=== PATIENT | male | born 1965 ===

== ENCOUNTER 2018-03-15 21:46 | Emergency (ER) | payer MEDICAID, OTHER ==
[2018-03-15 21:47] VITALS: BMI 38.0
[2018-03-15 21:55] VITALS: BP 129/79; PULSE 81; RESP 20; TEMP 98.6; O2SAT 98
--- NOTE | 2018-03-15 22:35 | C.PDOC ---
History Of Present Illness 52 year old male presents to the ED for evaluation of itchy big bites to his bilateral arms, legs and the back of his head. Patient reports he went camping this past Thursday recently came back. Patient also states that after he started scratching the bites in his legs, both legs started swelling up. Patient denies fever, chills, nausea, vomit, diarrhea. Time Seen by Provider: 03/15/18 22:00 Chief Complaint (Nursing): Abnormal Skin Integrity History Per: Patient History/Exam Limitations: no limitations Onset/Duration Of Symptoms: Days Location Of Injury: Right: Arm, Leg, Left: Arm, Leg, Posterior: Head Quality Of Symptoms: Itching Recent travel outside of the [place]: No Additional History Per: Patient Past Medical History Reviewed: Historical Data, Nursing Documentation, Vital Signs Vital Signs: Last Vital Signs Temp 98.6 F 03/15/18 21:50 Pulse 81 03/15/18 21:50 Resp 20 03/15/18 21:50 BP 129/79 03/15/18 21:50 Pulse Ox 98 03/15/18 22:50 - Medical History PMH: Asthma, Back Problems Denies: Chronic Kidney Disease Surgical History: No Surg Hx - [facility] Procedures NEBULIZER THERAPY (01/19/14) Family History: States: Unknown Family Hx - Social History Hx Tobacco Use: Yes Hx Alcohol Use: Yes Hx Substance Use: No - Immunization History Hx Tetanus Toxoid Vaccination: No Hx Influenza Vaccination: Yes Hx Pneumococcal Vaccination: No Review Of Systems Constitutional: Negative for: Fever, Chills Cardiovascular: Negative for: Chest Pain, Palpitations Respiratory: Negative for: Shortness of Breath Gastrointestinal: Negative for: Nausea, Vomiting Skin: Positive for: Rash Neurological: Negative for: Weakness, Numbness Physical Exam - Physical Exam Appears: Non-toxic, No Acute Distress Skin: Normal Color, Warm, Dry, Other (scatteres bug bites on bilateral arms, legs with no cellulitic component or erythema) Head: Atraumatic, Normacephalic Eye(s): bilateral: Normal Inspection, PERRL, EOMI Oral Mucosa: Moist Extremity: Normal ROM, No Tenderness, Capillary Refill (< 2 seconds), Swelling ( B/L legs) Extremity: Bilateral: Atraumatic Pulses: Left Dorsalis Pedis: Normal, Right Dorsalis Pedis: Normal Neurological/Psych: Oriented x3, Normal Speech, Normal Motor Gait: Steady ED Course And Treatment O2 Sat by Pulse Oximetry: 98 (On RA) Pulse Ox Interpretation: Normal Progress Note: Patient was prescribed some ointment for his bug bites. Patient was instructed no to scratch her bites for possibility of infection. Patient was also advised to follow up with PMD in 1-2 days. Disposition - Disposition Referrals: Griselda Garcia [Staff Provider] - Disposition: HOME/ ROUTINE Disposition Time: 22:34 Condition: GOOD Additional Instructions: Apply Ice to the bites which will help the itching. Return if there is worsened pain or swelling. 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 - Scribe Statement The provider has reviewed the documentation as recorded by the Scribe Stephen Zamora All medical record entries made by the Scribe were at my direction and personally dictated by me. I have reviewed the chart and agree that the record accurately reflects my personal performance of the history, physical exam, medical decision making, and the department course for this patient. I have also personally directed, reviewed, and agree with the discharge instructions and disposition.
== END 2018-03-15 22:40 | disposition home or self-care (01) ==
LOC: C.ER 21:46
DX: S40.862A Insect bite (nonvenomous) of left upper arm, initial encounter (principal); S40.861A Insect bite (nonvenomous) of right upper arm, initial encounter; S80.862A Insect bite (nonvenomous), left lower leg, initial encounter; S80.861A Insect bite (nonvenomous), right lower leg, initial encounter; W57.XXXA Bitten or stung by nonvenomous insect and other nonvenomous arthropods, initial encounter

== ENCOUNTER 2018-03-21 12:08 | Emergency (ER) | payer MEDICAID ==
[2018-03-21 12:09] VITALS: BMI 38.0
[2018-03-21 12:14] VITALS: BP 122/77; PULSE 85; RESP 18; TEMP 98.6; O2SAT 95
--- NOTE | 2018-03-21 13:15 | RAD ---
Chest x-ray two views History: Cough. Comparison: None available. Findings: Mild venous congestion. Right hilar prominence. Elevated right hemidiaphragm. Heart size within normal limits. Impression: Mild venous congestion. Right hilar prominence. Elevated right hemidiaphragm.
[2018-03-21] MEDS ORDERED: Fluticasone Nasal 50 mcg/Spray NAS STA (13:26)
[2018-03-21] MEDS ORDERED: Promethazine/Cod 6.25mg-10mg/5ml Syr UD PO STA (13:30)
--- NOTE | 2018-03-21 13:40 | C.PDOC ---
History Of Present Illness 52 y/o male presents to the ED complaining of sore throat, runny nose, and dry cough since last night. Patient reports PMHx of asthma, which is usually exacerbated by URIs. He states that he typically has asthma exacerbations twice per year, and requires nebulizer treatments only during those episodes. Also reports he felt like he was wheezing last night. Otherwise denies any fever, chills, headaches, bodyaches, chest tightness, or SOB. Time Seen by Provider: 03/21/18 12:23 Chief Complaint (Nursing): Cough, Cold, Congestion History Per: Patient History/Exam Limitations: no limitations Onset/Duration Of Symptoms: Days Current Symptoms Are (Timing): Still Present Past Medical History Reviewed: Historical Data, Nursing Documentation, Vital Signs Vital Signs: Last Vital Signs Temp 98.6 F 03/21/18 12:12 Pulse 85 03/21/18 12:12 Resp 18 03/21/18 12:12 BP 122/77 03/21/18 12:12 Pulse Ox 95 03/21/18 14:12 - Medical History PMH: Asthma, Back Problems, Bronchitis Denies: Chronic Kidney Disease - [facility] Procedures NEBULIZER THERAPY (01/19/14) Family History: States: Unknown Family Hx - Social History Hx Tobacco Use: Yes Hx Alcohol Use: Yes Hx Substance Use: No - Immunization History Hx Tetanus Toxoid Vaccination: No Hx Influenza Vaccination: Yes Hx Pneumococcal Vaccination: No Review Of Systems Except As Marked, All Systems Reviewed And Found Negative. Constitutional: Negative for: Fever, Chills ENT: Positive for: Nose Discharge, Nose Congestion, Throat Pain Cardiovascular: Negative for: Chest Pain Respiratory: Positive for: Cough, Wheezing. Negative for: Shortness of Breath Neurological: Negative for: Headache Physical Exam - Physical Exam Appears: Non-toxic, No Acute Distress Skin: Normal Color, Warm, Dry Head: Atraumatic, Normacephalic Eye(s): bilateral: Normal Inspection, PERRL, EOMI Nose: Discharge (nasal congestion noted) Oral Mucosa: Moist Throat: Erythema (mild pharyngeal erythema), No Exudate Neck: Normal ROM, Supple Lymphatic: No Adenopathy Cardiovascular: Rhythm Regular, No Murmur Respiratory: No Accessory Muscle Use, No Rales, No Rhonchi, No Wheezing, Other ( Persistent cough throughout examination) Extremity: Bilateral: Atraumatic, Normal Color And Temperature Pulses: Left Radial: Normal, Right Radial: Normal Neurological/Psych: Oriented x3, Normal Speech, Other (No focal deficits) Gait: Steady ED Course And Treatment O2 Sat by Pulse Oximetry: 95 (RA) Pulse Ox Interpretation: Normal - Other Rad CXR X-Ray: Read By Radiologist Interpretation: Accession No. : [id number]. Patient Name / ID : MATTHEW Ceron / [id number]. Exam Date : 03/21/2018 13:00:26 ( Approved ). Study Comment : Sex / Age : M / 52Y. Creator : Jose Antonio Jorge MD. Dictator : Jose Antonio Jorge MD. Tile Grader : Multilith Operator : Jose Antonio Jorge MD. Approver2 : Report Date : 03/21/2018 13:13:57. My Comment : . Chest x- ray two views. History: Cough. Comparison: None available. Findings: Mild venous congestion. Right hilar prominence. Elevated right hemidiaphragm. Heart size within normal limits. Impression: Mild venous congestion. Right hilar prominence. Elevated right hemidiaphragm. Progress Note: Patient treated in the ED with Benadryl, Zithro, Promethazine/ Codeine, and Flonase. CXR ordered and reviewed. On examination patient remains AAOx3, afebrile, with no acute respiratory distress or wheezing. Repeat PulseOx is 95% on room air. Patient is stable for discharge home. Provided prescriptions for Zitrho, Promethazine/Codeine, Flonase, and Albuterol inhaler. Advised patient to follow up with PMD in 1-2 days. Reassessment Condition: Improved Disposition Counseled Patient/Family Regarding: Studies Performed, Diagnosis, Need For Followup, Rx Given - Disposition Disposition: HOME/ ROUTINE Disposition Time: 13:30 Condition: STABLE Additional Instructions: Follow up with your PMD within 1-2 days. Return to ED if feel worse. 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 - Scribe Statement The provider has reviewed the documentation as recorded by the Scribe (Brenda Sue) All medical record entries made by the Scribe were at my direction and personally dictated by me. I have reviewed the chart and agree that the record accurately reflects my personal performance of the history, physical exam, medical decision making, and the department course for this patient. I have also personally directed, reviewed, and agree with the discharge instructions and disposition.
[2018-03-21] MEDS ORDERED: Promethazine/Cod 6.25mg-10mg/5ml Syr UD ONE (14:02)
== END 2018-03-21 14:21 | disposition home or self-care (01) ==
LOC: C.ER 12:08
DX: J06.9 Acute upper respiratory infection, unspecified (principal)